=== PATIENT | female | born 2000 | race African-American/Black ===

== ENCOUNTER 2023-09-26 14:06 | Outpatient (REF) | payer MEDICAID, SELFPAY ==
--- NOTE | ~2023-09-26 | XR_ITS ---
EXAMINATION: XR KNEE, RIGHT CLINICAL INFORMATION: Knee pain. COMPARISON: None available. TECHNIQUE: Four views of the right knee. FINDINGS: No fracture or joint effusion. Alignment is anatomic. Joint spaces are maintained. No abnormal soft tissue calcification. XR/XR knee RT 3V IMPRESSION: Normal right knee.
[2023-09-26 16:25] LABS: MANUAL DIFF FLAG NO
[2023-09-26 16:30] LABS: Eosinophils Absolute Auto 0.1 X10*3/uL (0.0-0.4); Eosinophils Percent Auto 1.5 % (0-4); Hematocrit 38.6 % (37.0-47.0); Hemoglobin 12.5 g/dl (12.0-16.0); Lymphocytes Percent Auto 47.6 % (20-40); Mean Corpuscular HGB Conc 32.4 g/dl (31.0-35.0); Mean Corpuscular Hemoglobin 26.5 pg (27.0-33.0); Mean Corpuscular Volume 81.8 fL (80.0-98.0); Mean Platelet Volume 10.8 fL (9.4-12.3); Monocytes Absolute Auto 0.4 X10*3/uL (0.1-1.2); Monocytes Percent Auto 9.5 % (2-11); Neutrophils Absolute Auto 1.7 x10*3/uL (2.0-8.3); Neutrophils Percent Auto 40.4 % (45-73); Platelet Count 330 X10*3/uL (160-400); Red Blood Count 4.72 X10*6/uL (4.20-5.50); Red Cell Distribution Width 13.2 % (11.0-16.0); White Blood Count 4.1 X10*3/uL (4.8-10.8)
[2023-09-26 16:36] LABS: Estimated Average Glucose 103 mg/dL; Hemoglobin A1c % 5.2 % (<6.0)
[2023-09-26 16:50] LABS: Alanine Aminotransferase 9 U/L (0-31); Alkaline Phosphatase 51 U/L (39-117); Anion Gap 15 (12-20); Aspartate Amino Transferase 21 U/L (5-31); Bilirubin Total 0.5 mg/dL (0.0-1.0); Blood Urea Nitrogen 8 mg/dL (9-16); Calcium 9.2 mg/dL (8.4-10.2); Carbon Dioxide 25 mmol/L (22-29); Chloride 105 mmol/L (96-108); Cholesterol 131 mg/dL (<200); Estimated Glomerular Filt Rate > 60; Glucose Random 96 mg/dL (60-115); HDL Cholesterol 40 mg/dL (>40); LDL Cholesterol Calculated 84 mg/dL (<100); Potassium 4.4 mmol/L (3.3-5.1); Sodium 141 mmol/L (135-145); Total Protein 7.7 g/dL (6.5-8.0); Triglycerides 39 mg/dL (<150)
[2023-09-26 17:04] LABS: TSH reflex Free T4 0.85 uIU/mL (0.32-4.0)
[2023-09-26 17:17] LABS: Erythrocyte Sedimentation Rate 16 MM/HR (0-20)
== END 2023-09-26 14:07 | disposition home or self-care (01) ==
LOC: HO.HHCL 14:06
PROVIDERS: Visit Provider General Practice
DX: R53.83 Other fatigue (principal); M25.561 Pain in right knee
CPT/HCPCS: 36415; 73562; 80053; 80061; 83036; 84443; 85025; 85652

== ENCOUNTER 2023-12-02 09:12 | Outpatient (REF) | payer MEDICAID, SELFPAY ==
--- NOTE | ~2023-12-02 | XR_ITS ---
EXAMINATION: XR KNEE, RIGHT CLINICAL INFORMATION: Knee pain. COMPARISON: 09/26/2023 TECHNIQUE: Idabel of the right knee. FINDINGS: Patellofemoral space preserved on this single sunrise view provided. XR/XR knee RT 1V IMPRESSION: Patellofemoral space preserved on this single sunrise view provided.
== END 2023-12-02 09:13 | disposition home or self-care (01) ==
LOC: HO.HOSX 09:12
PROVIDERS: Visit Provider Physician Assistant
DX: M22.41 Chondromalacia patellae, right knee (principal)
CPT/HCPCS: 73560; 99212

== ENCOUNTER 2023-12-02 09:53 | Outpatient (AMB) | payer MEDICAID, SELFPAY ==
--- NOTE | 2023-12-02 09:56 | MHC.OFFVIS ---
Intake Vital Signs 12/02/23 10:03 Height 5 ft 3 in Weight 238 lb BMI 42.2 Intake Visit Reasons: New Pt - right knee pain Intake Note: Ximena is a 23 year old female who presents today as a new patient for a evaluation of her right knee pain. Patient reports ongoing pain for a couple of months. She states that her pain is on the whole knee. Patient was performing a exercise where she was on both knees, when she felt something move in her knee and it popped back into place. Pain is worse when bending, she tends to feel resistance. Allergies No Known Allergies Allergy (Verified 12/02/23 10:03) HPI New Pt - right knee pain HPI Details 23-year-old female who presents in the office today, as a new patient, for an evaluation of right knee pain. The patient reports ongoing pain for a few months. She claims the pain in through out the entire knee. She reports she was exercises on both her knees when she felt something in her right knee move and states it popped back into place. She states the pain increases with bending and she reports feeling resistance. 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 No ecchymosis, erythema, or joint effusion. No tenderness to palpation to the medial or lateral joint lines. Slight tenderness to palpation along the lateral patella. Full knee extension and flexion. Negative Scott's. Negative anterior drawer. NVI. Assessment & Plan Assessment & Plan (1) Chondromalacia patellae, right knee: Code(s): M22.41 - Chondromalacia patellae, right knee Plan Ms. Zamudio is a 23-year-old female who presents in the office today, as a new patient, for an evaluation of right knee pain. The patient reports ongoing pain for a few months. She claims the pain in through out the entire knee. She reports she was exercises on both her knees when she felt something in her right knee move and states it popped back into place. She states the pain increases with bending and she reports feeling resistance. A referral was place for physical therapy. Follow up will be in 6 weeks, or sooner if needed. X-rays of the right knee which were obtained while in the office today and were reviewed by me, Trini Mejia PA-C, revealed no acute fracture or dislocation. Orders: Orders XR knee RT 1V Today M25.569 - Pain in unspecified knee Patient Instructions: Scribed by Monique Nassar biomedical equipment technician, for Trini Mejia PA-C on 12/02/2023 at 9:55 am, EST. Coding Level of Care Code New Pt Level 4 (03629) Diagnoses Chondromalacia patellae, right knee M22.41
[2023-12-02 10:03] VITALS: BMI 42.2
== END 2023-12-02 11:11 | disposition home or self-care (01) ==
PROVIDERS: PCP Pediatrics; Visit Provider Physician Assistant
DX: M22.41 Chondromalacia patellae, right knee (principal)
CPT/HCPCS: 99203

== ENCOUNTER 2024-04-05 15:26 | Outpatient (REF) | payer MEDICAID, SELFPAY ==
--- NOTE | ~2024-04-05 | XR_ITS ---
EXAMINATION: XR ANKLE, LEFT CLINICAL INFORMATION: Pain and swelling. COMPARISON: None available. TECHNIQUE: AP, lateral, and mortise views of the left ankle. FINDINGS: Bony alignment and mineralization are normal. The ankle mortise is intact. No fracture, dislocation or left ankle joint no effusion is seen. Boehler's angle is normal. There is no calcaneal spur. There is marked soft tissue swelling adjacent to the medial malleolus. XR/XR ankle LT min 3V IMPRESSION: 1. No left ankle fracture, dislocation, effusion or unusual degenerative change is seen. 2. There is marked soft tissue swelling adjacent to the medial malleolus.
[2024-04-05 16:23] LABS: Basophils Percent Auto 0.7 % (0-2); Eosinophils Absolute Auto 0.1 X10*3/uL (0.0-0.4); Eosinophils Percent Auto 1.1 % (0-4); Hematocrit 41.3 % (37.0-47.0); Hemoglobin 13.9 g/dl (12.0-16.0); Lymphocytes Absolute Auto 2.4 X10*3/uL (1.2-4.9); Lymphocytes Percent Auto 52.7 % (20-40); MANUAL DIFF FLAG NO; Mean Corpuscular HGB Conc 33.7 g/dl (31.0-35.0); Mean Corpuscular Hemoglobin 27.4 pg (27.0-33.0); Mean Corpuscular Volume 81.5 fL (80.0-98.0); Mean Platelet Volume 10.6 fL (9.4-12.3); Monocytes Absolute Auto 0.4 X10*3/uL (0.1-1.2); Neutrophils Absolute Auto 1.7 x10*3/uL (2.0-8.3); Neutrophils Percent Auto 36.5 % (45-73); Platelet Count 311 X10*3/uL (160-400); Red Blood Count 5.07 X10*6/uL (4.20-5.50); Red Cell Distribution Width 14.6 % (11.0-16.0); White Blood Count 4.6 X10*3/uL (4.8-10.8)
[2024-04-05 16:53] LABS: Vitamin D 25-OH Total 24.6 ng/mL (>30)
[2024-04-05 17:14] LABS: Folate 9.9 ng/mL (> or = 4.0); Vitamin B12 613 pg/mL (200-900)
== END 2024-04-05 15:27 | disposition home or self-care (01) ==
LOC: HO.HHCL 15:26
PROVIDERS: Visit Provider General Practice
DX: R53.83 Other fatigue (principal); M25.572 Pain in left ankle and joints of left foot; G89.29 Other chronic pain
CPT/HCPCS: 36415; 73610; 82306; 82607; 82746; 85025

== ENCOUNTER 2025-01-11 11:10 | Outpatient (REF) | payer MEDICAID, SELFPAY ==
[2025-01-11 13:17] LABS: MANUAL DIFF FLAG NO
[2025-01-11 13:23] LABS: Basophils Percent Auto 0.6 % (0-2); Eosinophils Absolute Auto 0.1 X10*3/uL (0.0-0.4); Eosinophils Percent Auto 1.5 % (0-4); Hematocrit 37.5 % (37.0-47.0); Hemoglobin 12.3 g/dl (12.0-16.0); Imm Gran Abs Auto 0.01 X10*3/uL (0.00-0.03); Imm Gran Pct Auto 0.2 % (0.0-0.4); Lymphocytes Absolute Auto 2.4 X10*3/uL (1.2-4.9); Lymphocytes Percent Auto 49.7 % (20-40); Mean Corpuscular HGB Conc 32.8 g/dl (31.0-35.0); Mean Corpuscular Hemoglobin 28.1 pg (27.0-33.0); Mean Corpuscular Volume 85.6 fL (80.0-98.0); Mean Platelet Volume 10.7 fL (9.4-12.3); Monocytes Absolute Auto 0.5 X10*3/uL (0.1-1.2); Monocytes Percent Auto 9.9 % (2-11); Neutrophils Absolute Auto 1.8 x10*3/uL (2.0-8.3); Neutrophils Percent Auto 38.1 % (45-73); Platelet Count 348 X10*3/uL (160-400); Red Blood Count 4.38 X10*6/uL (4.20-5.50); Red Cell Distribution Width 13.2 % (11.0-16.0); White Blood Count 4.8 X10*3/uL (4.8-10.8)
--- OUTSIDE RECORDS SUMMARY | 2025-01-11 13:29 | XMS_ITS | Clinical Summary ---
Author Organization [facility] ity Address [address] [place] [address] Care Team Providers Care Switchboard Operator Name Role Phone Unavailable Primary Care Provider Unavailabl e Social History Tobacco Use Types Packs/Day Years Used Date Smoking Tobacco: Never Assessed Comments Unknown Sex and Gender Information Value Date Recorded Sex Assigned at Not on file Legal Sex Female 8:10 PM EST Gender Identity Not on file Sexual Orientation Not on file Plan of Treatment Health Maintenance Due Date Last Done Comments Gonorrhea/Chlamydia Screening 2001 HPV Vaccines (1 - 3-dose series) 2016 Meningococcal B Vacine (1 of 2 - Standard) 2017 DTaP,Tdap,and Td Vaccines (1 - Tdap) 2020 Hepatitis B Vaccines (1 of 3 - 19+ 3-dose series) 2020 Depression Screening 09/14/2022 HIV Screening 09/14/2022 Hepatitis C Screening 09/14/2022 Social Influencers of Health Screening 09/14/2022 Cervical Cancer Screening: P ap Smear 2022 COVID-19 Vaccine ( - 2023-2 5 season) 2024 Influenza Vaccine (Season Ended) 2025 HIB Vaccines Aged Out No longer eligi ble based on patient's age to complete this topic Hepatitis A Vaccines Aged Out No long er eligible based on patient's age to complete this topic IPV Vaccines Aged Out No longer eligi ble based on patient's age to complete this topic MMR Vaccines Aged Out No longer eligi ble based on patient's age to complete this topic Meningococcal ACWY Vaccine Aged Out N o longer eligible based on patient's age to complete this topic Pneumococcal Vaccine: Pediat rics (0 to 5 Years) and At-Risk Patients (6 to 64 Years) Aged Out No longer eligible b ased on patient's age to complete this topic RSV Immunization Patients Un geno 20 months Aged Out No longer eligible b ased on patient's age to complete this topic Varicella Vaccines Aged Out No longer eligible based on patient's age to complete this topic
[2025-01-11 14:31] LABS: Alanine Aminotransferase 8 U/L (0-31); Albumin Level 4.1 g/dL (3.5-5.0); Alkaline Phosphatase 52 U/L (39-117); Anion Gap 10 (12-20); Aspartate Amino Transferase 23 U/L (5-31); Bilirubin Total 0.4 mg/dL (0.0-1.0); Blood Urea Nitrogen 10 mg/dL (9-16); Calcium 9.3 mg/dL (8.4-10.2); Carbon Dioxide 27 mmol/L (22-29); Chloride 108 mmol/L (96-108); Cholesterol 144 mg/dL (<200); Estimated Glomerular Filt Rate > 60; Glucose Random 98 mg/dL (60-115); HDL Cholesterol 39 mg/dL (>40); LDL Cholesterol Calculated 100 mg/dL (<100); Potassium 4.4 mmol/L (3.3-5.1); Sodium 141 mmol/L (135-145); Total Protein 7.4 g/dL (6.5-8.0); Triglycerides 28 mg/dL (<150)
== END 2025-01-11 11:11 | disposition home or self-care (01) ==
LOC: HO.HHCL 11:10
PROVIDERS: Visit Provider General Practice
DX: E66.3 Overweight (principal)
CPT/HCPCS: 36415; 80053; 80061; 85025